=== PATIENT | male | born 1930 | race Caucasian/White ===

== ENCOUNTER 2017-12-24 16:21 | Inpatient (IN) | payer OTHER ==
[2017-12-24 17:25] VITALS: BMI 24.0
[2017-12-24] MEDS ORDERED: NON-FORMULARY MEDICATION (Apixaban [Eliquis] 2.5 MG) PO SCH (21:00)
[2017-12-24] MEDS ORDERED: ELIQUIS ONE (21:23)
[2017-12-25] MEDS: NON-FORMULARY MEDICATION (Apixaban [Eliquis] 2.5 MG) PO SCH ×2 (08:03→20:28)
[2017-12-25] MEDS ORDERED: LASIX IVP STA (08:36)
--- NOTE | 2017-12-25 15:21 | RS.OTINEVL ---
Subjective - Patient information Date of Evaluation: 12/25/17 Date of Arrival on Unit: 12/24/17 Usual Living Arrangement: Alone Living Arrangement Comments: Pt lives at [facility]. Pt reports he uses a rolling walker and the help gives him showers. Pt is independent with dressing. Home Environment: Apartment Medical History: CVA/TIA Medical History Comments:: Cataracts, CVA, respiratory disorder, UTI, Benign Prostatic hyperplasia, B TKA, LLE venous insufficiency, Surgical History: Knee Replacement Surgical History Comments:: B TKA, hernia surgery, Subjective Information/ Patient Comments:: "How did I get here?" "Do you girls work here 24 hours?" - Level of function Prior to this admission, the patient could do the following:: Partially Dependent Ambulation Abilities prior to this admission: Pt was independent with dressing. Pt requires assistance with a shower. Pt was ambulating with a rollator walker. Current Level of Function: Partially Dependent Current Equipment Used at Home: Rolling Walker, uses a shower chair. Pain Assessment - Pain Pain Score: 3 Side: bilateral Pain Location Body Site: Generalized Pain Aggravating Factors: Changing Position Interventions - Objective Patient Orientation: Person Current Interventions: IV's, Oxygen, Telemetry Observation: Pt is confused and doesnt understand how he got here or why he is here. Interventions - ROM Right Upper Extremity AROM: No movement - Strength Right Upper Extremity Strength: Mild Weakness Left Upper Extremity Strength: Mild Weakness - Sensation Right Upper Extremity Sensation: Intact/Normal Left Upper Extremity Sensation: Intact/Normal Balance - Sitting Balance Static Sitting Balance: Fair Dynamic Sitting Balance: Fair - Standing Balance Static Standing Balance: Fair Dynamic Standing Balance: Fair ADL Skills - Self Feeding Self Feeding: Independent - Grooming Grooming: Min Assist - Bathing Bathing UE: Min Assist Bathing LE: Mod Assist - Dressing Dressing UE: Independent Dressing LE: Mod Assist - Toilet Management Toileting Management: Min Assist Functional Mobility - Bed Mobility Rolling R/L: Independent Scooting: Independent Supine to Sit: Independent Sit to Supine: Independent - Transfers Sit to Stand: Min Assist, 1 person assist Stand to Sit: Min Assist Stand Pivot Transfers: Min Assist - Ambulation Weight Bearing Status: FWB Assistive Device Used: Rolling Walker Assistance needed with Ambulation: Min Assist - Safety Awareness Safety Awareness: Good ALY INDEX SCORE: .. Additional Treatment Performed - Time with patient Total treatment time: 23 Activities Do you enjoy playing games?: Yes Would you be interested in leaving your room for activities?: Yes Would you enjoy group activities?: Yes Do you have difficulty with your vision?: Yes What types of things do you enjoy doing? Any Hobbies?: Nazario Patient Interests:: Watching Television, Visiting/Socializing Patient Education Patient Education: Education of diagnosis, Home Safety, Education of Plan of Care Teaching Recipient: Patient Teaching Methods: Discussion Assessment Problem List:: Decreased level of function, Requires training/education, Decreased safety/Risk of falls, Weakness Rehab Potential: Good Further Therapy Indicated?: Yes Evaluation Complexity: HISTORY: Medium, EXAM OF BODY SYSTEMS: Medium, CLINICAL DECISION MAKING: Medium Short Term Goals - Goals GOAL 1: Pt to increase dyn. std. balance to F+/G-. Goal to be met by: 01/01/18 GOAL 2: Pt to increase BUE strength to 4/5. Goal to be met by: 01/01/18 GOAL 3: Pt to increase activity tolerance to 10 minutes. Goal to be met by: 01/01/18 Aerosol Line Operator Goals GOAL 1: Pt to increase dynamic std. balance to Good with RW. Goal to be met by: 01/04/18 GOAL 2: Pt to increase BUE strength to 4+/5. Goal to be met by: 01/04/18 GOAL 3: Pt to increase activity tolerance to 15 minutes. Goal to be met by: 01/04/18 Plan Plan of Care: Therapeutic EX, Neuromuscular Re-Educ, Therapeutic Activity, Self- Care/Home Management Frequency of Treatment: 1-2 X day, as tolerated Duration of Treatment: 2 Weeks Anticipated Discharge Destination: Assisted Living Facility Treatment Diagnosis (ICD 10 Codes): Muscle Weakness, M62.81 Has the Physician been added for Co-signature?: Yes
--- NOTE | 2017-12-25 15:37 | RS.PTINEVL ---
Subjective - Patient information Date of Evaluation: 12/25/17 Date of Arrival on Unit: 12/24/17 Admitted From:: [facility]. Diagnosis: CHF, decubitus ulcer Usual Living Arrangement: Alone Living Arrangement Comments: Pt lives at [facility]. Pt reports he uses a rolling walker and the assistants help him with showers. Pt reports he is independent with dressing. Home Environment: Apartment Medical History: CVA/TIA, CHF Medical History Comments:: BPH, LLE venous insufficiency, Surgical History: Knee Replacement Surgical History Comments:: B TKA, hernia surgery, Medications: see chart Subjective Information/ Patient Comments:: pt states that he is wanting to walk. - Level of function Prior to this admission, the patient could do the following:: Partially Dependent Ambulation Current Level of Function: Partially Dependent Current Equipment Used at Home: Rolling Walker, uses a shower chair. Pain Assessement - Location buttocks Description: Sharp, Acute Pain Behavior: Restlessness, Facial Grimacing Pain Aggravating Factors: Changing Position, Sitting Pain Alleviating Factors: Medication Interventions - Objective Patient Orientation: Person Current Interventions: Telemetry Observation: pt has wounds to B buttocks Range of Motion - ROM Right Upper Extremity AROM: WFL's Left Upper Extremity AROM: WFL's Right Lower Extremity AROM: WFL's Left Lower Extremity AROM: WFL's Muscle Strength - Muscle Strength Right Upper Extremity Strength: Mild Weakness (grossly 4-/5) Left Upper Extremity Strength: Mild Weakness (grossly 4-/5) Right Lower Extremity Strength: Mild Weakness (hip flex 4-/5, knee flex/ext 4/5 , ankle Df/PF 4/5) Left Lower Extremity Strength: Mild Weakness (hip flex 4-/5, knee flex/ext 4/5, ankle Df/PF 4/5) Sensation - Sensation Right Upper Extremity Sensation: Intact/Normal Left Upper Extremity Sensation: Intact/Normal Right Lower Extremity Sensation: Intact/Normal Left Lower Extremity Sensation: Intact/Normal Palpation Palpation Findings: None/Normal Balance - Sitting Balance and Reactions Static Sitting Balance: Fair Dynamic Sitting Balance: Fair Sitting Equilibrium Reactions: Delayed Left, Delayed Right Sitting Protective Reactions: Delayed Left, Delayed Right - Standing Balance and Reactions Static Standing Balance: Poor Dynamic Standing Balance: Poor Standing Equilibrium Reactions: Delayed Left, Delayed Right Standing Protective Reactions: Delayed Left, Delayed Right Functional Mobility - Transfers Sit to Stand: Min Assist, 1 person assist Stand to Sit: Min Assist, 1 person assist - Safety Awareness Safety Awareness: Poor ALY INDEX SCORE: n/a Ambulation - Ambulation Assistive Device Used: Rolling Walker Orthotic/Prosthetic Device: No Distance: 130ft Assistance needed with Ambulation: Min Assist, 1 person assist, 2 person assist Quality of Ambulation: pt requires CGA to min x 1-2 due to increased lat sway and flexed posture Gait Deviations: Forward posture, Short stride, Deviates from path Factors Affecting Ambulation: Decreased Balance, Pain, Weakness, Decreased Safety, Cognitive Status, Limited Endurance Treatment time - Time with patient Total treatment time: 27 Patient Education - Education Patient Education: Activity Modification, Education of Plan of Care Teaching Recipient: Patient Teaching Methods: Discussion (discussion with patient regarding orientation to place as well as POC and use of call light) Assessment - Assessment Problem List:: Decreased level of function, Requires training/education, Decreased safety/Risk of falls, Weakness, Pain limits previous level of function , Cognitive status limits abilities Rehab Potential: Good Further Therapy Indicated?: Yes Candidate for Swing Bed for Therapy Services?: Feel pt may not be a candidate for swing bed due to cognitive deficits Evaluation Complexity: HISTORY: Medium (CHF, CVA, decubitus, ), EXAM OF BODY SYSTEMS: Medium (strength, balance, gait, transfers), CLINICAL PRESENTATION: Medium (evolving), CLINICAL DECISION MAKING: Medium Short Term Goals GOAL #1: pt demonstrate rolling independently with min x 1 scooting up in bed Goal to be met by: 12/28/17 GOAL #2: pt transfer sup to/from sit to/from stand CGA x 1 Goal to be met by: 12/28/17 GOAL #3: pt amb with rwx 140ft with CGA with no LOB with improved posture Goal to be met by: 12/28/17 GOAL #4: pt with improved BLE strength 4 to 4+/5 Goal to be met by: 12/28/17 Die Attaching Machine Tender Goals GOAL #1: pt transfer sup to/from sit independently sit to/from stand SBA Goal to be met by: 12/31/17 GOAL #2: pt amb with rwx functional household distances with no LOB CG to SBA Goal to be met by: 12/31/17 GOAL #3: pt demonstrate improved balance as noted by no LOB during gait. Goal to be met by: 12/31/17 Plan Plan of Care: Therapeutic EX, Therapeutic Activity Other:: gait training Frequency of Treatment: 1-2 X day, as tolerated Duration of Treatment: 6 days Anticipated Discharge Destination: Assisted Living Facility Treatment Diagnosis (ICD 10 Codes): R26.2 difficulty walking. R25.81 balance impaired. [id number] general weakness Has the Physician been added for Co-signature?: Yes
[2017-12-25] MEDS ORDERED: ELIQUIS ONE (20:22)
[2017-12-25] MEDS: ATIVAN IVP PRN (22:51)
[2017-12-26] MEDS: ATIVAN IVP PRN (01:07)
[2017-12-26] MEDS: LASIX IVP SCH (10:13)
[2017-12-26] MEDS: ELIQUIS PO SCH ×2 (10:14→20:19)
[2017-12-27] MEDS: LASIX IVP SCH (05:57)
[2017-12-27] MEDS: ELIQUIS PO SCH ×2 (08:11→20:47)
[2017-12-27] MEDS: LANOXIN PO SCH (11:05)
[2017-12-28 06:15] VITALS: BP 139/88; TEMP 98.1
[2017-12-28] MEDS ORDERED: LASIX TAB PO SCH (06:30)
--- NOTE | 2017-12-28 08:44 | PN ---
DATE OF SERVICE: 12/26/17 CHIEF COMPLAINT: "I had a bed sore" BRIEF HISTORY OF PRESENT ILLNESS: Seen first time office 12/18/17 after moving from [place], [place] to be close to his son/Dr. Bhatti(retired anesthesiologist). He had a recent CVA related to Atrial fibrillation with deficits in gait and speech. Apparently on that visits had redness on buttocks; that worsened. Seen office day of admit he had bilateral buttock stage two wounds. he has apparently frequent urinary/stool incontinence and difficulty with walking, turning and like. It was decided this was too risky to try to treat this as outpatient and he was placed in observation. Additional problems; he was dizzy/weak prior to 12.18 and son fearing he was not needing Lasix; he stopped it. This appeared tolerated on but now is associated with 2-3/4pitting edema bilateral LE and redness/ weeping of left lower extremity. BNP has returned 800s H and decision is to use IV Lasix in controlled setting of vitals/labs for few days. It is anticipated all of this could need rehab/skilled care for several days. INTERVAL CHANGES: He became agitated and uncooperative approximately midnight. Ativan 0.5mg did not seem to help; a second dose did. He slept all night; in fact he is sleepy today. There were no significant arrhythmia, changes in vitals at that time. We have decided to start him on an IV diuresis of Lasix due to the swelling and partially some redness of the left lower extremity assuming and predicting that this will be stasis dermatitis in etiology. REVIEW OF SYSTEMS: GENERAL: More lethargic today CHEST: No staff reporting cough or wheeze. CARDIOVASCULAR: No mentions of any chest pains, he remains in rate controlled atrial fibrillation GI: There is no nausea or vomiting. : He is occasionally incontinent PHYSICAL EXAMINATION: V/S: Temperature 97.8, pulse 74, blood pressure 133/75, respiratory rate 12 GENERAL: Rousable in no obvious distress INTEGUMENT: The buttock wounds are clean with no odor; approximately zones same size, pink and half that size in the center of more deeply desquamation. No induration or fluctuant. CHEST: Clear CARDIOVASCULAR: Regular, regular 106 murmur with left slightly greater than right. Lower extremity edema; mild redness around the left ankle and no induration or fluctuant. Left is 1 out of 4 pitting and the right is half. LABS/X-RAYS: Chemistry show sodium 139, potassium 3.9, BUN 11.5, creatinine 0.73, GFR 101 ASSESSMENT: # Buttock decubitus-stable if not slightly improved # Care issues-now being provided # Lower extremity edema; I suspect there is a component of CHF # Elevated BNP at 800 # Redness of the left lower extremity-suspects Stasis Dermatitis # Agitation # Behavior # Lethargy- post Ativan # Chronic issues noted in H&P PLAN: 1. Medications reviewed- will try to avoid the Ativan and continue IV diuresis 2. Laboratories reviewed-continue daily chemistries especially while diuresis 3. Imaging; not at this point but if he becomes in anyway focal we will get CT or MRI imaging of the head 4. Consults-not at this point. Could end up needing neurology review due to his urinary incontinence 5. Diet-Cardiac 6. Fluids 7. D/C planning-we are offering the family Skilled Care placement for a longer period of wound care and others before eventually making it back [facility] 8. Code status remains Full at this time. [facility]
--- NOTE | 2017-12-28 08:44 | ECHO2D ---
Date of Exam: 12/28/17 Ordering Physician: MARIELA HAM MD Room # : 112 Reason for Echo: CONGESTIVE HEART FAILURE, LEG EDEMA, DYSPNEA M-Mode Normal Adult Results LV Dimensions Normal Adult Results AoV Opening excursions >1.6 >1.6 LVEDD-base- 3.5-5.8 4.3 Ao root dimensions 2.0-3.7 4.1 LVESD-base- 3.1-4.6 L. Atrium dimensions 1.9-3.8 5.0 Post. Wall thickness 0.8-1.1 1.4 IV septum (thickness) 0.7-1.2 1.3 Post. Wall excursion 0.72-1.3 NORMAL Septal motion NORMAL Systolic motion R. Ventricular cavity 1.5-2.0 NORMAL LVEF 60% 69% Paradoxical septal wall motion NORMAL 2-D : NORMAL LEFT VENTRICULAR CONTRACTILITY - NORMAL VALVES - ENLARGED LEFT ATRIAL CAVITY. NO THROMBUS, NO EFFUSION, NORMAL LEFT VENTRICLE SIZE M-MODE: MV: NORMAL AV: NORMAL TV: NORMAL PV: CHAMBER SIZE: ENLARGED LEFT ATRIAL CAVITY, BORDERLINE AORTIC ROOT WALL MOTION: NORMAL PERICARDIUM: NORMAL INTERPRETATION: 1. LEFT VENTRICULAR HYPERTROPHY WITH ENLARGED LEFT ATRIAL CAVITY (5.0 CM) 2. NORMAL LEFT VENTRICULAR CONTRACTILITY EF 69% 3. NORMAL VALVES 4. BORDERLINE LEFT VENTRICULAR SIZE MTDD
[2017-12-28] MEDS: LANOXIN PO SCH (09:29)
[2017-12-28] MEDS: ELIQUIS PO SCH (09:30)
--- NOTE | 2017-12-28 10:06 | PN ---
DATE OF SERVICE: 12/27/17 CHIEF COMPLAINT: "I have bed sores" BRIEF HISTORY OF PRESENT ILLNESS: Seen first time office 12/18/17 after moving from [place], [place] to be close to his son/Dr. Bhatti(retired anesthesiologist). He had a recent CVA related to Atrial fibrillation with deficits in gait and speech. Apparently on that visits had redness on buttocks; that worsened. Seen office day of admit he had bilateral buttock stage two wounds. he has apparently frequent urinary/stool incontinence and difficulty with walking, turning and like. It was decided this was too risky to try to treat this as outpatient and he was placed in observation. Additional problems; he was dizzy/weak prior to 12.18 and son fearing he was not needing Lasix; he stopped it. This appeared tolerated on but now is associated with 2-3/4pitting edema bilateral LE and redness/ weeping of left lower extremity. BNP has returned 800s H and decision is to use IV Lasix in controlled setting of vitals/labs for few days. It is anticipated all of this could need rehab/skilled care for several days. INTERVAL CHANGES: The lethargy after his Ativan early in the morning on 12/26 has resolved. The agitation associated prior to that has resolved. Being more alert and is eating better today; he continues to have urinary incontinence with no fecal incontinence. His family and he has accepted placement at [facility]. REVIEW OF SYSTEMS: GENERAL: There has been no fever INTEGUMENT: Lower extremity edema continues to improved with IV diuresis and the pink red discoloration around the left ankle is resolving. CHEST: Denies cough or wheeze. CARDIOVASCULAR: Denies chest pain has usual palpitation atrial fibrillation on monitor : Continues to have intermittent urinary incontinence. No fecal incontinence NEUROLOGIC: He has not had any focal weakness of slurred speech. PHYSICAL EXAMINATION: V/S: Temperature 97.5, pulse 84, respiratory 20, blood pressure 130/64 GENERAL: No obvious distress HEENT: Pupils equal and round. NECK: Supple INTEGUMENT: Less edema with both lower extremity left slightly greater than the right with less pinkness to the left ankle area. No induration. Buttock wounds are dry with less pink coloration. Mucosa membranes moist. CHEST: Clear slightly kyphotic CARDIOVASCULAR: I/ systolic murmur, irregular regular. Edema was noted. GI: Nontender. MUSCULOSKELETAL: Inside Sales Coordinator are equal, alert and oriented times three. LABS/X-RAYS: Chemistry completely normal Potassium 3.7, BUN 19, creatinine 0.75 ASSESSMENT: # Buttocks decubitus-slowly improving significant contribution to care issues of staying dry and keeping pressure off # Care issues # Lower extremity edema-probably a component of CHF (echo pending tomorrow)- has improved and was tolerated in general diuresis # BNP 851 # Echo pending # Stasis Dermatis- left lower extremity # Bilateral lower extremity edema # Period of agitation-resolved # Lethargy- post Ativan and resolved PLAN: 1. Medications- trying to avoid Ativan; switching from IV Lasix to oral in the morning 2. Labs continued daily-order for morning 3. Trying to get an echo 4. Diet same 5. Fluids-none 6. Discharge planning-[facility] probably tomorrow 7. Code Status Full unless he or POA changes. MTDD
== END 2017-12-28 15:07 | DRG 594 ==
LOC: OBSVTOIN 16:21 → MEDSURG B 16:21
PROVIDERS: ADMIT Family Medicine; ATTEND Family Medicine
DX: L89.322 Pressure ulcer of left buttock, stage 2 (principal); L89.312 Pressure ulcer of right buttock, stage 2; R32 Unspecified urinary incontinence; R15.9 Full incontinence of feces; R60.0 Localized edema; I87.2 Venous insufficiency (chronic) (peripheral); R26.89 Other abnormalities of gait and mobility; R41.0 Disorientation, unspecified; R53.83 Other fatigue; R53.1 Weakness; R42 Dizziness and giddiness; I10 Essential (primary) hypertension; I48.2 Chronic atrial fibrillation; F32.9 Major depressive disorder, single episode, unspecified; M19.90 Unspecified osteoarthritis, unspecified site; I50.9 Heart failure, unspecified; Z79.01 Long term (current) use of anticoagulants
CPT/HCPCS: 36415; 80048; 80053; 83880; 85025; 93005; 93010

== ENCOUNTER 2018-01-22 15:30 | Outpatient (CLI) | END 2018-01-22 15:31 | disposition home or self-care (01) | LOC: NONPT 15:30 | PROVIDERS: ATTEND Family Medicine | DX: R30.9 Painful micturition, unspecified (principal) | CPT/HCPCS: 81001; 87086 ==